=== PATIENT | female | born 1990 | race Caucasian/White ===

== ENCOUNTER 2022-07-10 15:01 | Emergency (ER) | payer OTHER ==
[~2022-07-10] VITALS: Ht 157.5 cm; Wt 54.0 kg
== END 2022-07-10 19:09 | disposition home or self-care (01) ==
LOC: ER 15:01
DX: O99.511 Diseases of the respiratory system complicating pregnancy, first trimester (principal); J06.9 Acute upper respiratory infection, unspecified; Z3A.11 11 weeks gestation of pregnancy; Z20.822 Contact with and (suspected) exposure to COVID-19

== ENCOUNTER 2023-01-02 17:00 | Outpatient (CLI) | payer OTHER ==
[~2023-01-02] VITALS: Ht 160 cm; Wt 63.5 kg
== END 2023-01-03 11:43 | disposition home or self-care (01) ==
LOC: OBS/DEL 17:00
PROVIDERS: ATTEND Obstetrics & Gynecology
DX: O26.893 Other specified pregnancy related conditions, third trimester (principal); Z3A.37 37 weeks gestation of pregnancy

== ENCOUNTER 2023-01-14 03:19 | Inpatient (IN) | payer OTHER ==
[~2023-01-14] VITALS: Ht 160 cm; Wt 64.0 kg
[2023-01-14] MEDS ORDERED: PRENATAL TABLE1 EAC4 PO (08:32)
[2023-01-14] MEDS ORDERED: SYNTHROID50 MCG PO (08:33)
== END 2023-01-16 14:21 | disposition home or self-care (01) | DRG 807 ==
LOC: OBS/DEL 03:19 → LDR 07:53 → OB/GYN 13:28
PROVIDERS: ADMIT Obstetrics & Gynecology Gynecology; ATTEND Obstetrics & Gynecology Gynecology
PROC: 10E0XZZ Delivery of Products of Conception, External Approach (ICD-10-PCS; principal; 2023-01-14)
PROC: 0UQG7ZZ Repair Vagina, Via Natural or Artificial Opening (ICD-10-PCS; 2023-01-14)
PROC: 4A1HXCZ Monitoring of Products of Conception, Cardiac Rate, External Approach (ICD-10-PCS; 2023-01-14)
DX: O71.4 Obstetric high vaginal laceration alone (principal); Z37.0 Single live birth; Z3A.38 38 weeks gestation of pregnancy; Z20.822 Contact with and (suspected) exposure to COVID-19